=== PATIENT | male | born 1985 | race Caucasian/White ===

== ENCOUNTER → 2022-07-27 | Outpatient (CLI) | payer OTHER, SELFPAY | END | disposition home or self-care (01) | LOC: LABSPEC 15:43 | PROVIDERS: Referring Provider Physician Assistant; Visit Provider Physician Assistant | DX: T81.42XD Infection following a procedure, deep incisional surgical site, subsequent encounter (principal); S82.441D Displaced spiral fracture of shaft of right fibula, subsequent encounter for closed fracture with routine healing | CPT/HCPCS: 87070; 87075; 87077; 87186; 87205 ==